=== PATIENT | female | born 1985 | race Hispanic/Latino ===

== ENCOUNTER 2020-09-15 13:12 | Outpatient (CLI) | payer MEDICAID ==
--- NOTE | 2020-09-15 15:37 | Fluoroscopy Report ---
UPPER GI HISTORY: GASTRO-ESOPHAGEAL REFLUS DISEASE W/O ESOPHAGITIS. TECHNIQUE: Single and double contrast barium technique utilized to evaluate the esophagus, stomach, and duodenal C-loop. FINDINGS: To begin the exam, swallowing was evaluated in the lateral position under direct fluorosco py. Swallowing was normal. No mucosal irregularity, mass, mass effect, or critical stenosis. At least one episode of mild barbara roesophageal reflux into the distal esophagus was witnessed during this exam. Occasional tertiary con tractions were also witnessed in the distal esophagus. The stomach and duodenum demonstrate normal mu cosal pattern and caliber. Gastric sleeve surgical changes are noted and appear intact. No ulceration is appreciated. IMPRESSION: There is evidence for mild gastroesophageal reflux disease. Mild esophageal dysmotility. No obstruction or mucosal lesion. Fluoroscopic time: 2.0 minutes Number of fluoroscopic images: 37 Signer Name: eSun Ordaz Jr, MD Signed: 09/15/2020 3:32 PM Workstation Name: [id number]
== END 2020-09-15 13:13 | disposition home or self-care (01) ==
LOC: FLUORO 13:12
PROVIDERS: ATTEND Surgery
DX: K21.9 Gastro-esophageal reflux disease without esophagitis (principal); K22.8 Other specified diseases of esophagus; Z98.890 Other specified postprocedural states
CPT/HCPCS: 74246